=== PATIENT | female | born 1995 | race Two or more races ===

== ENCOUNTER → 2024-05-29 | Outpatient (CLI) | payer MEDICAID ==
[2024-05-29 07:15] LABS: Basophils # (auto) 0 10 ^3/uL (0-0.2); Basophils % (auto) 0.3 % (0.0-2.0); Eosinophils # (auto) 0.2 10 ^3/uL (0-0.8); Eosinophils % (auto) 2.2 % (0.0-7.0); Hematocrit 36.6 % (36.0-46.0); Hemoglobin 12.4 g/dL (12.2-16.2); Lymphocytes # (auto) 2.6 10 ^3/uL (0.4-5.4); Lymphocytes % (auto) 29.1 % (10.0-50.0); Mean Corpuscular Hemoglobin 32.9 pg (28.0-32.0); Mean Corpuscular Volume 96.8 fL (80.0-100.0); Monocytes # (auto) 0.6 10 ^3/uL (0-1.3); Monocytes % (auto) 6.9 % (0.0-12.0); Neutrophils # (auto) 5.4 10 ^3/uL (1.6-8.6); Neutrophils % (auto) 61.5 % (37.0-80.0); Nucleated Red Blood Cells % 0.1 %; Platelet Count (auto) 264 10^3/uL (140-450); Red Blood Cells 3.78 10^6/uL (4.0-5.20); Red Cell Distribution Width 14.9 % (11.8-14.3); White Blood Cell 8.8 10^3/uL (4.4-10.8)
[2024-05-29 07:36] LABS: Amphetamine Screen, Urine Neg (NEGATIVE)
[2024-05-29 07:37] LABS: Alanine Aminotransferase 14 U/L (7-40); Albumin 3.9 g/dL (3.2-4.8); Alkaline Phosphatase 52 U/L (46-116); Anion Gap 8 (5-15); Aspartate Aminotransferase 12 U/L (13-40); Bilirubin, Total 0.4 mg/dL (0.2-1.0); Blood Urea Nitrogen 9 mg/dL (9-23); Calcium 9.4 mg/dL (8.7-10.4); Carbon Dioxide 23 mmol/L (20-31); Chloride 108 mmol/L (98-107); Cholesterol 220 mg/dL (< 200); Glucose 91 mg/dL (74-106); HDL Cholesterol 105 mg/dL (40-59); LDL Cholesterol 100 mg/dL (< 100); Potassium 3.7 mmol/L (3.5-5.1); Sodium 139 mmol/L (136-145); Total Protein 6.3 g/dL (5.7-8.2); Triglycerides 85 mg/dL (< 150)
[2024-05-29 07:38] LABS: Barbiturate Scree,Urine Neg (NEGATIVE); Benzodiazephine Screen, Urine Neg (NEGATIVE); Cannabinoid Screen, Urine Neg (NEGATIVE); Cocaine Screen, Urine Neg (NEGATIVE); Opiate Scree,Urine Neg (NEGATIVE); Phencyclidine Screen, Urine Neg (NEGATIVE)
[2024-05-29 07:40] LABS: Thyroid Stimulating Hormone 2.64 uIU/mL (0.55-4.78)
[2024-05-29 07:48] LABS: Beta HCG, Quantitative 22784.1 mIU/mL (1.5-4.2)
[2024-05-30 07:06] LABS: RPR Non Reactive (Non Reactive)
[2024-05-30 08:06] LABS: Varicella Zoster IgG Antibody Reactive (Non Reactive)
[2024-05-30 13:07] LABS: Chlamydia Trachomatis, NAA Negative (Negative); Neisseria gonorrhoeae, NAA Negative (Negative)
== END | disposition home or self-care (01) ==
LOC: LAB 06:10
PROVIDERS: ATTEND Obstetrics & Gynecology
DX: Z34.00 Encounter for supervision of normal first pregnancy, unspecified trimester (principal); Z36.0 Encounter for antenatal screening for chromosomal anomalies; Z31.430 Encounter of female for testing for genetic disease carrier status for procreative management; N39.0 Urinary tract infection, site not specified
CPT/HCPCS: 36415; 80053; 80061; 80307; 83036; 84439; 84443; 84702; 85025; 86592; 86703; 86762; 86787; 86850; 86900; 86901; 87086; 87902

== ENCOUNTER → 2024-08-13 | Outpatient (CLI) | payer MEDICAID ==
[2024-08-13 11:16] LABS: Basophils # (auto) 0 10 ^3/uL (0-0.2); Basophils % (auto) 0.3 % (0.0-2.0); Eosinophils # (auto) 0.2 10 ^3/uL (0-0.8); Eosinophils % (auto) 2.3 % (0.0-7.0); Hematocrit 37.9 % (36.0-46.0); Hemoglobin 12.9 g/dL (12.2-16.2); Lymphocytes % (auto) 22.3 % (10.0-50.0); Mean Corpuscular Hemoglobin 33.1 pg (28.0-32.0); Mean Corpuscular Hgb Conc. 34.1 g/dL (32.0-36.0); Mean Corpuscular Volume 97.3 fL (80.0-100.0); Monocytes % (auto) 10.8 % (0.0-12.0); Neutrophils # (auto) 5.8 10 ^3/uL (1.6-8.6); Neutrophils % (auto) 64.3 % (37.0-80.0); Platelet Count (auto) 241 10^3/uL (140-450); Red Cell Distribution Width 13.8 % (11.8-14.3)
[2024-08-13 11:38] LABS: Alanine Aminotransferase 11 U/L (7-40); Albumin 3.9 g/dL (3.2-4.8); Alkaline Phosphatase 89 U/L (46-116); Anion Gap 8 (5-15); BUN/Creatinine Ratio 11.5 (10.0-20.0); Calcium 9.2 mg/dL (8.7-10.4); Carbon Dioxide 23 mmol/L (20-31); Chloride 107 mmol/L (98-107); Glucose 99 mg/dL (74-106); Sodium 138 mmol/L (136-145)
[2024-08-13 11:39] LABS: Bilirubin, Total 0.4 mg/dL (0.2-1.0); Total Protein 6.2 g/dL (5.7-8.2)
[2024-08-13 11:48] LABS: Aspartate Aminotransferase 13 U/L (13-40); Blood Urea Nitrogen 7 mg/dL (9-23)
[2024-08-14 07:06] LABS: RPR Non Reactive (Non Reactive)
[2024-08-14 23:06] LABS: Chlamydia Trachomatis, NAA Negative (Negative); Neisseria gonorrhoeae, NAA Negative (Negative)
== END | disposition home or self-care (01) ==
LOC: LAB 10:01
PROVIDERS: ATTEND Obstetrics & Gynecology
DX: Z34.00 Encounter for supervision of normal first pregnancy, unspecified trimester (principal); Z3A.00 Weeks of gestation of pregnancy not specified
CPT/HCPCS: 36415; 80053; 82951; 83036; 85025; 86592; 86850; 86900; 86901

== ENCOUNTER 2024-08-22 17:10 | Observation (INO) | payer MEDICAID ==
[~2024-08-22] VITALS: Ht 177.8 cm; Wt 115.7 kg
--- NOTE | 2024-08-22 20:10 | DVH ---
ULTRASOUND BIOPHYSICAL PROFILE CLINICAL HISTORY: GDMA1 COMPARISON: None available TECHNIQUE: Real-time grayscale, color flow and M-mode imaging of the gravid uterus is performed. FINDINGS: Single living intrauterine gestation. Cephalic presentation. heart rate 119 beats per minute. Amniotic fluid index: 13.02 cm Biophysical profile: 8 out of 8. (2 breathing, 2 activity, 2 tone, 2 SABRINA) IMPRESSION: Biophysical profile scoring 8 out of 8.
--- NOTE | 2024-08-22 22:08 | DVHDS2 ---
Physician Discharge Progress N Final Diagnosis: IUP at 32w GDMA1 Hypothyroidism Reactive NST Normal Biophysical profile Operations or Procedures: Operations or Procedures 28yo G1,[address] for surveillance due to GDMA1 and hypothyroidism. EDC 10/14/2024. EGA 32w 3d. She reports normal movements, no UCs, no leakage of fluid, vaginal bleeding, WILLIAMSON, vision changes or epigastric pain O: A&O x3 NAD. Afebrile, VSS Respiration: unlabored heart and lung sounds normal. Abdomen: Gravid, non-tender to palpation Extremities: No edema BPP 8/8 FHR baseline 120bpm with accelerations, no deceleration, no contraction noted nor palpated. A: Normal BPP Reactive NST P: Continue surveillance 2x/week Keep all schedule OB appointments with your OB provider 3rd trimester emergency S&S FMC, PTL & pre-eclampsia precautions reviewed with pt; advised to seek health care if any Condition on Discharge: Good Disposition: Home Discharge Instructions: Diet: Consistent carbohydrate Activity: No Restrictions, As Tolerated Activity comment: Balance activity with rest periods Medications: None Follow Up Care: Discharge Statement: "Patient was advised to return to the ER or call 911 if any headaches, dizziness, shortness of breath, chest pain, abdominal pain, bleeding, fevers, or worsening of medical condition. Patient was counseled about treatment plan, medications, possible side effects, patientverbalized understanding. All questions were answered to the best of my ability. This discharge took greater then 30 minutes in planning, reviewing documentation, counseling the patient, and discussing with other team members." Visit Coding OBGYN Date of Service: Aug 22, 2024 Billing Provider: KELI GUZMAN CNM ORCHESTRA DIRECTOR Common Visit Codes: [id number] INP/OBS CARE (HIGH) KELI GUZMAN CNM Aug 22, 2024 22:08
[2024-09-08] MEDS ORDERED: METF-370 PO (16:04)
[2024-09-08] MEDS ORDERED: LEVO150T10 PO (16:06)
== END 2024-08-22 21:05 | disposition home or self-care (01) ==
LOC: LDRP 17:10
PROVIDERS: ADMIT Obstetrics & Gynecology; ATTEND Obstetrics & Gynecology
DX: O99.283 Endocrine, nutritional and metabolic diseases complicating pregnancy, third trimester (principal); E03.9 Hypothyroidism, unspecified; O24.419 Gestational diabetes mellitus in pregnancy, unspecified control; Z3A.32 32 weeks gestation of pregnancy; Z79.899 Other long term (current) drug therapy; Z98.890 Other specified postprocedural states
CPT/HCPCS: 59025; 76818; 81002; 82948; 82962; 94760; G0378

== ENCOUNTER 2024-09-05 19:04 | Observation (INO) | payer MEDICAID ==
--- NOTE | 2024-09-05 21:16 | DVH ---
OB ULTRASOUND, LIMITED CLINICAL INDICATION: GDMA1/Hypothyroidism TECHNIQUE: Multiple grayscale ultrasound and M-mode images were obtained of the pelvis for evaluation of intrauterine . COMPARISON: US BIOPHYSICAL PROFILE on DOS: 08/22/24 FINDINGS /impression: Biophysical profile: 02/12 breathin movements: 2 tone: 2 Amniotic fluid: 2 (SABRINA 13.5 cm) position: Cephalic heart rate: 140 beats per minute Placenta location: Posterior
--- NOTE | 2024-09-09 11:59 | DVHDS2 ---
Physician Discharge Progress N Final Diagnosis: gdm,hypothyroidism Operations or Procedures: Operations or Procedures nst,sono Condition on Discharge: Good Disposition: Home Discharge Instructions: Diet: Consistent carbohydrate Activity: No Restrictions, As Tolerated Medications: na Follow Up Care: Specialist: 3d Discharge Statement: "Patient was advised to return to the ER or call 911 if any headaches, dizziness, shortness of breath, chest pain, abdominal pain, bleeding, fevers, or worsening of medical condition. Patient was counseled about treatment plan, medications, possible side effects, patientverbalized understanding. All questions were answered to the best of my ability. This discharge took greater then 30 minutes in planning, reviewing do cumentation, counseling the patient, and discussing with other team members." Visit Coding OBGYN Date of Service: Sep 05, 2024 Billing Provider: MARIO ANTOINE DO ELECTRIC TRUCK OPERATOR Common Visit Codes: [id number]-[id number] INP/OBS CARE (HIGH) ELECTRIC TRUCK OPERATOR Procedure Codes: 89221-00- NON-STRESS TEST MARIO ANTOINE DO Sep 09, 2024 11:59
== END 2024-09-05 21:20 | disposition home or self-care (01) ==
LOC: LDRP 19:04
PROVIDERS: ADMIT Obstetrics & Gynecology; ATTEND Obstetrics & Gynecology
DX: O24.419 Gestational diabetes mellitus in pregnancy, unspecified control (principal); O99.283 Endocrine, nutritional and metabolic diseases complicating pregnancy, third trimester; E03.9 Hypothyroidism, unspecified; Z98.890 Other specified postprocedural states; Z79.899 Other long term (current) drug therapy; Z3A.34 34 weeks gestation of pregnancy
CPT/HCPCS: 59025; 76819; 81002; 82948; 82962; 94760; G0378; 76818

== ENCOUNTER 2024-09-08 15:00 | Observation (INO) | payer MEDICAID ==
[2024-09-08] MEDS ORDERED: METF-370 PO ×2 (16:04)
[2024-09-08] MEDS ORDERED: LEVO150T10 PO ×2 (16:06)
--- NOTE | 2024-09-08 16:19 | DVH ---
Procedure: US BIOPHYSICAL PROFILE 09/08/2024 03:29 PM Indication: GDMA2/Hypothyroid Comparison: US BIOPHYSICAL PROFILE on DOS: 09/05/24, US BIOPHYSICAL PROFILE on DOS: 08/22/24 Technique: Sonogram of gravid uterus utilizing grayscale and color techniques. FINDINGS: Single living intrauterine gestation. Presentation: Cephalic Placenta: Posterior heart rate: 122 bpm SABRINA: 17.6 cm, DVP: 5.5 cm Maternal cervix: Not visualized Biophysical Profile: breathing score: 2 movement score: 2 tone: 2 Quantitative SABRINA score: 2 Total score: 8/8 IMPRESSION: 1. Single living as above. 2. Biophysical profile score: 8/8.
--- NOTE | 2024-09-08 21:32 | DVHDS2 ---
Physician Discharge Progress N Final Diagnosis: testing for GDMA2/hypothyroidism Operations or Procedures: Operations or Procedures 28yo IUP@34.6wks, +FM, denies UCs/LOF/VB VSS NST reactive FKC/PTL precautions reviewed. Dr. Angel consulted, agrees with POC. Other Interventions Other Interventions [place] [address] Ph: [phone] DIAGNOSTIC IMAGING Diagnostic Imaging Report : [id number] Signed PATIENT: SARA CAMACHO VACCT: [id number] UNIT: [id number] : 1995 LOC: [facility] ROOM / BED: TRIAGE1 / A AGE / SEX: 28 / F ADM STATUS: ADM IN SERVICE 151 ORDERING PHYSICIAN: TEJA GONZALEZ CNM PROCEDURE(s): BPP - BIOPHYSICAL PROFILE REASON: GDMA2/Hypothyroid ORDER NUMBER(s): [id number], ACCESSION NUMBER(s): [id number] Procedure: US BIOPHYSICAL PROFILE 09/08/2024 03:29 PM Indication: GDMA2/Hypothyroid Comparison: US BIOPHYSICAL PROFILE on DOS: 09/05/24, US BIOPHYSICAL PROFILE on DOS: 08/22/24 Technique: Sonogram of gravid uterus utilizing grayscale and color techniques. FINDINGS: Single living intrauterine gestation. Presentation: Cephalic Placenta: Posterior heart rate: 122 bpm SABRINA: 17.6 cm, DVP: 5.5 cm Maternal cervix: Not visualized Biophysical Profile: breathing score: 2 movement score: 2 tone: 2 Quantitative SABRINA score: 2 Total score: 8/8 IMPRESSION: 1. Single living as above. 2. Biophysical profile score: 8/8. ATED BY: KATIANA RAY MD DICTATED DATE/TIME: 09/08/241616 SIGNED BY: KATIANA RAY MD SIGNED DATE/TIME: 09/08/241616 CC: Condition on Discharge: Stable Disposition: Home Discharge Instructions: Diet: Consistent carbohydrate Activity: No Restrictions, As Tolerated Medications: see med list Follow Up Care: Specialist: f/u in 3 days Discharge Statement: "Patient was advised to return to the ER or call 911 if any headaches, dizziness, shortness of breath, chest pain, abdominal pain, bleeding, fevers, or worsening of medical condition. Patient was counseled about treatment plan, medications, possible side effects, patientverbalized understanding. All questions were answered to the best of my ability. This discharge took greater then 30 minutes in planning, reviewing documentation, counseling the patient, and discussing with other team members." Visit Coding OBGYN Date of Service: Sep 08, 2024 Billing Provider: TEJA GONZALEZ CNM MANAGER SPANISH Common Visit Codes: [id number] OBS CARE (HIGH) MANAGER SPANISH Procedure Codes: 02782-01- NON-STRESS TEST TEJA GONZALEZ CNM Sep 08, 2024 21:32
== END 2024-09-08 16:22 | disposition home or self-care (01) ==
LOC: UNDOADMOB 15:00 → LDRP 15:00 → UNDODISOB 16:22
PROVIDERS: ADMIT Obstetrics & Gynecology; ATTEND Obstetrics & Gynecology
DX: O24.419 Gestational diabetes mellitus in pregnancy, unspecified control (principal); O99.283 Endocrine, nutritional and metabolic diseases complicating pregnancy, third trimester; E03.9 Hypothyroidism, unspecified; Z98.890 Other specified postprocedural states; Z79.899 Other long term (current) drug therapy; Z3A.34 34 weeks gestation of pregnancy
CPT/HCPCS: 59025; 76819; 81002; 82948; 82962; 94760; G0378; 76818

== ENCOUNTER 2024-09-11 08:07 | Observation (INO) | payer MEDICAID ==
[~2024-09-11 08:07] MED LIST: LEVO150T10 PO; METF-370 PO
--- NOTE | 2024-09-11 09:27 | DVH ---
Procedure: US BIOPHYSICAL PROFILE 09/11/2024 08:33 AM Indication: GDMA2/Hypothyroid Comparison: US BIOPHYSICAL PROFILE on DOS: 09/08/24, US BIOPHYSICAL PROFILE on DOS: 09/05/24, US BIOPHYSI SANTA PROFILE on DOS: 08/22/24 Technique: Sonogram of gravid uterus utilizing grayscale and color techniques. FINDINGS: Single living intrauterine gestation. Presentation: Cephalic Placenta: Anterior, accessory versus bilobed placenta heart rate: 130 bpm SABRINA: 15 cm, DVP: 4 cm Maternal cervix: Not visualized Biophysical Profile: breathing score: 2 movement score: 2 tone: 2 Quantitative SABRINA score: 2 Total score: 8/8 IMPRESSION: 1. Single living as above. 2. Biophysical profile score: 8/8.
--- NOTE | 2024-09-11 14:43 | DVHDS2 ---
Physician Discharge Progress N Final Diagnosis: iup at 35wks gdm,hypothyroidism Operations or Procedures: Operations or Procedures nst,sono Condition on Discharge: Good Disposition: Home Discharge Instructions: Diet: Consistent carbohydrate Activity: No Restrictions, As Tolerated Medications: na Follow Up Care: Specialist: 3d Discharge Statement: "Patient was advised to return to the ER or call 911 if any headaches, dizziness, shortness of breath, chest pain, abdominal pain, bleeding, fevers, or worsening of medical condition. Patient was counseled about treatment plan, medications, possible side effects, patientverbalized understanding. All questions were answered to the best of my ability. This discharge took greater then 30 minutes in planning, reviewing documentation, counseling the patient, and discussing with other team members." Visit Coding OBGYN Date of Service: Sep 11, 2024 Billing Provider: MARIO ANTOINE DO REAMING MACHINE OPERATOR Common Visit Codes: [id number] INP/OBS CARE (HIGH) REAMING MACHINE OPERATOR Procedure Codes: 16007-59- NON-STRESS TEST MARIO ANTOINE DO Sep 11, 2024 14:43
== END 2024-09-11 09:38 | disposition home or self-care (01) ==
LOC: UNDOADMOB 08:07 → LDRP 08:07
PROVIDERS: ADMIT Obstetrics & Gynecology; ATTEND Obstetrics & Gynecology
DX: O24.419 Gestational diabetes mellitus in pregnancy, unspecified control (principal); O99.283 Endocrine, nutritional and metabolic diseases complicating pregnancy, third trimester; E03.9 Hypothyroidism, unspecified; Z98.890 Other specified postprocedural states; Z79.899 Other long term (current) drug therapy; Z3A.35 35 weeks gestation of pregnancy
CPT/HCPCS: 59025; 76819; 81002; 82948; 82962; 94760; G0378; 76818

== ENCOUNTER 2024-09-15 06:51 | Observation (INO) | payer MEDICAID ==
--- NOTE | 2024-09-15 13:04 | DVH ---
EXAM: US BIOPHYSICAL PROFILE HISTORY: GDMA2/Hypothyroid COMPARISON: US BIOPHYSICAL PROFILE on DOS: 09/11/24, US BIOPHYSICAL PROFILE on DOS: 09/08/24, US BIOPHYSI SANTA PROFILE on DOS: 09/05/24 TECHNIQUE: Multiple transabdominal real-time grayscale sonographic images through the gravid uterus of the fetus with duplex Doppler color flow and M-mode spectral analysis Findings/Impression: Single live intrauterine in vertex presentation with heart rate of 138 bpm. Biophysical profile was performed with 2 points for respirations, 2 points for movement, 2 points for tone and 2 points for amniotic fluid index. Biophysical profile score of 8/8. Amniotic fluid is within normal limits with SABRINA 15.2 cm and MVP 5.4 cm. Possible bilobed placenta. Normal SABRINA (5-25 cm) Normal MVP (2-8 cm)
--- NOTE | 2024-09-15 13:54 | DVHDS2 ---
Physician Discharge Progress N Final Diagnosis: gdm ,hypothyroidism 35wks Operations or Procedures: Operations or Procedures nstb 35wks,sono Condition on Discharge: Good Disposition: Home Discharge Instructions: Diet: Consistent carbohydrate Activity: No Restrictions, As Tolerated Medications: na Follow Up Care: Specialist: 1w Discharge Statement: "Patient was advised to return to the ER or call 911 if any headaches, dizziness, shortness of breath, chest pain, abdominal pain, bleeding, fevers, or worsening of medical condition. Patient was counseled about treatment plan, medications, possible side effects, patientverbalized understanding. All questions were answered to the best of my ability. This discharge took greater then 30 minutes in planning, reviewing documentation, counseling the patient, and discussing with other team members." Visit Coding OBGYN Date of Service: Sep 15, 2024 Billing Provider: MARIO ANTOINE DO CARDIAC CATH LAB RADIOLOGY TECHNOLOGIST Common Visit Codes: [id number] INP/OBS CARE (HIGH) CARDIAC CATH LAB RADIOLOGY TECHNOLOGIST Procedure Codes: 39896-53- NON-STRESS TEST MARIO ANTOINE DO Sep 15, 2024 13:54
== END 2024-09-15 13:47 | disposition home or self-care (01) ==
LOC: LDRP 12:02
PROVIDERS: ADMIT Obstetrics & Gynecology; ATTEND Obstetrics & Gynecology
DX: O24.419 Gestational diabetes mellitus in pregnancy, unspecified control (principal); O99.283 Endocrine, nutritional and metabolic diseases complicating pregnancy, third trimester; E03.9 Hypothyroidism, unspecified; Z98.890 Other specified postprocedural states; Z79.899 Other long term (current) drug therapy; Z3A.35 35 weeks gestation of pregnancy
CPT/HCPCS: 76819; 81002; 82948; 82962; 94760; G0378; 59025; 76818

== ENCOUNTER 2024-09-18 16:00 | Observation (INO) | payer MEDICAID ==
--- NOTE | 2024-09-18 17:20 | DVH ---
EXAM: US BIOPHYSICAL PROFILE HISTORY: GDMA2 and Hypothyroid COMPARISON: US BIOPHYSICAL PROFILE on DOS: 09/15/24, US BIOPHYSICAL PROFILE on DOS: 09/11/24, US BIOPHYS ICAL PROFILE on DOS: 09/08/24 TECHNIQUE: Multiple transabdominal real-time grayscale sonographic images through the gravid uterus of the fetus with duplex Doppler color flow and M-mode spectral analysis Findings/Impression: Single live intrauterine in vertex presentation with heart rate of 151 bpm. Possible accessory versus bilobed placenta. Biophysical profile was performed with 2 points for respirations, 2 points for movement, 2 points for tone and 2 points for amniotic fluid index. Biophysical profile score of 8/8. Amniotic fluid is within normal limits with SABRINA 12.4 cm and MVP 5.0 cm. Normal SABRINA (5-25 cm) Normal MVP (2-8 cm)
--- NOTE | 2024-09-18 17:32 | DVHDS2 ---
Physician Discharge Progress N Final Diagnosis: testing for hypothyroidism and GDM, A2 Operations or Procedures: Operations or Procedures 28yo IUP@36.2wks VSS NST reactive FKC/PTL precautions reviewed Dr. Angel consulted, agrees with POC. Other Interventions Other Interventions [facility] [id number] [place] [address] Ph: [phone] DIAGNOSTIC IMAGING Diagnostic Imaging Report : [id number] Signed PATIENT: SARA CAMACHO VACCT: [id number] UNIT: [id number] : 1995 LOC: [facility] ROOM / BED: TRIAGE3 / A AGE / SEX: 28 / F ADM STATUS: ADM IN SERVICE 1604 ORDERING PHYSICIAN: MARIO ANGEL DO PROCEDURE(s): BPP - BIOPHYSICAL PROFILE REASON: GDMA2 and Hypothyroid ORDER NUMBER(s): [id number], ACCESSION NUMBER(s): [id number] EXAM: US BIOPHYSICAL PROFILE HISTORY: GDMA2 and Hypothyroid COMPARISON: US BIOPHYSICAL PROFILE on DOS: 09/15/24, US BIOPHYSICAL PROFILE on DOS: 09/11/24, US BIOPHYSICAL PROFILE on DOS: 09/08/24 TECHNIQUE: Multiple transabdominal real-time grayscale sonographic images through the gravid uterus of the fetus with duplex Doppler color flow and M-mode spectral analysis Findings/Impression: Single live intrauterine in vertex presentation with heart rate of 151 bpm. Possible accessory versus bilobed placenta. Biophysical profile was performed with 2 points for respirations, 2 points for movement, 2 points for tone and 2 points for amniotic fluid index. Biophysical profile score of 8/8. Amniotic fluid is within normal limits with SABRINA 12.4 cm and MVP 5.0 cm. Normal SABRINA (5-25 cm) Normal MVP (2-8 cm) ATED BY: JAYNA DALEY DO DICTATED DATE/TIME: 09/18/241717 SIGNED BY: JAYNA DALEY DO SIGNED DATE/TIME: 09/18/241717 CC: Condition on Discharge: Stable Disposition: Home Discharge Instructions: Diet: Consistent carbohydrate Activity: No Restrictions, As Tolerated Medications: see med list Follow Up Care: Specialist: f/u twice weekly Discharge Statement: "Patient was advised to return to the ER or call 911 if any headaches, dizziness, shortness of breath, chest pain, abdominal pain, bleeding, fevers, or worsening of medical condition. Patient was counseled about treatment plan, medications, possible side effects, patientverbalized understanding. All questions were answered to the best of my ability. This discharge took greater then 30 minutes in planning, reviewing documentation, counseling the patient, and discussing with other team members." Visit Coding OBGYN Date of Service: Sep 18, 2024 Billing Provider: TEJA GONZALEZ CNM GLASS CUTTER Common Visit Codes: 60025-[id number] OBS CARE (HIGH) GLASS CUTTER Procedure Codes: 34359-27- NON-STRESS TEST TEJA GONZALEZ CNM Sep 18, 2024 17:32
== END 2024-09-18 17:37 | disposition home or self-care (01) ==
LOC: LDRP 16:00 → UNDOADMOB 16:00 → LDRP 16:05
PROVIDERS: ADMIT Obstetrics & Gynecology; ATTEND Obstetrics & Gynecology
DX: O24.419 Gestational diabetes mellitus in pregnancy, unspecified control (principal); O99.283 Endocrine, nutritional and metabolic diseases complicating pregnancy, third trimester; E03.9 Hypothyroidism, unspecified; Z98.890 Other specified postprocedural states; Z79.899 Other long term (current) drug therapy; Z3A.36 36 weeks gestation of pregnancy
CPT/HCPCS: 76819; 81002; 82948; 82962; 94760; G0378; 59025; 76818

== ENCOUNTER 2024-09-22 17:08 | Observation (INO) | payer MEDICAID ==
--- NOTE | 2024-09-22 20:21 | DVH ---
ULTRASOUND BIOPHYSICAL PROFILE CLINICAL HISTORY: GDMA2/hypothyroid COMPARISON: US BIOPHYSICAL PROFILE on DOS: 09/18/24 TECHNIQUE: Real-time grayscale, color flow and M-mode imaging of the gravid uterus is performed. FINDINGS: Single living intrauterine gestation. Cephalic presentation. heart rate 153 beats per minute. Placenta is posterior. No definite evidence of previa or abruption at this time. Possible accessory p lacenta is again noted. Amniotic fluid index: 13.6cm Biophysical profile: 8 out of 8. (2 breathing, 2 activity, 2 tone, 2 SABRINA) IMPRESSION: Biophysical profile scoring 8 out of 8. Possible accessory versus bilobed placenta is again noted.
--- NOTE | 2024-09-22 22:58 | DVHDS2 ---
Physician Discharge Progress N Final Diagnosis: testing for GDMA2/hypothyroidism Operations or Procedures: Operations or Procedures 28yo IUP@36.6wks VSS NST reactive FKC/PTL/labor precautions reviewed Dr. Angel agrees with POC. Other Interventions Other Interventions [address] [address] Ph: [phone] DIAGNOSTIC IMAGING Diagnostic Imaging Report : [id number] Signed PATIENT: SARA CAMACHO VACCT: [id number] UNIT: [id number] : 1995 LOC: [facility] ROOM / BED: TRIAGE1 / A AGE / SEX: 28 / F ADM STATUS: ADM IN SERVICE 53 ORDERING PHYSICIAN: TEJA GONZALEZ CNM PROCEDURE(s): BPP - BIOPHYSICAL PROFILE REASON: GDMA2/hypothyroid ORDER NUMBER(s): [id number], ACCESSION NUMBER(s): [id number] ULTRASOUND BIOPHYSICAL PROFILE CLINICAL HISTORY: GDMA2/hypothyroid COMPARISON: US BIOPHYSICAL PROFILE on DOS: 09/18/24 TECHNIQUE: Real-time grayscale, color flow and M-mode imaging of the gravid uterus is performed. FINDINGS: Single living intrauterine gestation. Cephalic presentation. heart rate 153 beats per minute. Placenta is posterior. No definite evidence of previa or abruption at this time. Possible accessory placenta is again noted. Amniotic fluid index: 13.6cm Biophysical profile: 8 out of 8. (2 breathing, 2 activity, 2 tone, 2 SABRINA) IMPRESSION: Biophysical profile scoring 8 out of 8. Possible accessory versus bilobed placenta is again noted. ATED BY: GIOVANY WARD MD DICTATED DATE/TIME: 09/22/242018 SIGNED BY: GIOVANY WARD MD SIGNED DATE/TIME: 09/22/242018 CC: Condition on Discharge: Stable Disposition: Home Discharge Instructions: Diet: Consistent carbohydrate Activity: No Restrictions, As Tolerated Medications: see med list Follow Up Care: Specialist: f/u in 3 days Discharge Statement: "Patient was advised to return to the ER or call 911 if any headaches, dizziness, shortness of breath, chest pain, abdominal pain, bleeding, fevers, or worsening of medical condition. Patient was counseled about treatment plan, medications, possible side effects, patientverbalized understanding. All questions were answered to the best of my ability. This discharge took greater then 30 minutes in planning, reviewing documen tation, counseling the patient, and discussing with other team members." Visit Coding OBGYN Date of Service: Sep 22, 2024 Billing Provider: TEJA GONZALEZ CNM METAL REFINER Common Visit Codes: [id number] OBS CARE (HIGH) METAL REFINER Procedure Codes: 72088-53- NON-STRESS TEST TEJA GONZALEZ CNM Sep 22, 2024 22:58
== END 2024-09-22 20:14 | disposition home or self-care (01) ==
LOC: LDRP 17:08
PROVIDERS: ADMIT Obstetrics & Gynecology; ATTEND Obstetrics & Gynecology
DX: O24.419 Gestational diabetes mellitus in pregnancy, unspecified control (principal); O99.283 Endocrine, nutritional and metabolic diseases complicating pregnancy, third trimester; E03.9 Hypothyroidism, unspecified; Z3A.36 36 weeks gestation of pregnancy; Z79.899 Other long term (current) drug therapy
CPT/HCPCS: 59025; 76819; 81002; 82948; 82962; 94760; G0378

== ENCOUNTER 2024-09-25 19:08 | Observation (INO) | payer MEDICAID ==
--- NOTE | 2024-09-25 20:16 | DVH ---
BIOPHYSICAL PROFILE HISTORY: GDMA2 and hypothyroidism TECHNIQUE: Multiple transabdominal real-time grayscale sonographic images through the gravid uterus of the fetus with duplex Doppler color flow and M-mode spectral analysis FINDINGS: BIOPHYSICAL PROFILE: breathing score: 2 movement score: 2 tone score: 2 Quantitative SABRINA score: 2 (SABRINA: 14 cm) Total score: 8/8 The cervix not measured Single live fetus in cephalic presentation. heart rate 121 beats per minute. Posterior Grade 2-3 placenta without previa or abruption Single live fetus at weeks days Biophysical profile score 8/8 corresponding to an LONNY of 10/07/2024 Estimated weight not calculated g IMPRESSION: 1. Biophysical profile score: 8/8
--- NOTE | 2024-09-26 07:15 | DVHDS2 ---
Physician Discharge Progress N Final Diagnosis: iup at 37 wks with gdm Operations or Procedures: Operations or Procedures nst,sono Condition on Discharge: Good Disposition: Home Discharge Instructions: Diet: Consistent carbohydrate Activity: No Restrictions, As Tolerated Medications: na Follow Up Care: Specialist: 1w Discharge Statement: "Patient was advised to return to the ER or call 911 if any headaches, dizziness, shortness of breath, chest pain, abdominal pain, bleeding, fevers, or worsening of medical condition. Patient was counseled about treatment plan, medications, possible side effects, patientverbalized understanding. All questions were answered to the best of my ability. This discharge took greater then 30 minutes in planning, reviewing documentation, counseling the patient, and discussing with other team members." Visit Coding OBGYN Date of Service: Sep 26, 2024 Billing Provider: MARIO ANTOINE DO MANAGER VIDEO Common Visit Codes: [id number] INP/OBS CARE (HIGH) MANAGER VIDEO Procedure Codes: 78797-72- NON-STRESS TEST MARIO ANTOINE DO Sep 26, 2024 07:15
== END 2024-09-25 21:02 | disposition home or self-care (01) ==
LOC: LDRP 19:08
PROVIDERS: ADMIT Obstetrics & Gynecology; ATTEND Obstetrics & Gynecology
DX: O24.419 Gestational diabetes mellitus in pregnancy, unspecified control (principal); Z98.890 Other specified postprocedural states; Z79.899 Other long term (current) drug therapy; Z3A.37 37 weeks gestation of pregnancy
CPT/HCPCS: 59025; 76819; 81002; 82962; G0378; 76818

== ENCOUNTER 2024-09-30 19:11 | Observation (INO) | payer MEDICAID ==
--- NOTE | 2024-09-30 20:20 | DVHDS2 ---
Physician Discharge Progress N Final Diagnosis: testing for GDM, A2 and hypothyroid Operations or Procedures: Operations or Procedures 28yo IUP@38wks VSS NST reactive BPP wnl FKC/labor precautions reviewed Condition on Discharge: Stable Disposition: Home Discharge Instructions: Diet: Consistent carbohydrate Activity: No Restrictions, As Tolerated Medications: see med list Follow Up Care: Specialist: f/u in 3 days Discharge Statement: "Patient was advised to return to the ER or call 911 if any headaches, dizziness, shortness of breath, chest pain, abdominal pain, bleeding, fevers, or worsening of medical condition. Patient was counseled about treatment plan, medications, possible side effects, patientverbalized understanding. All questions were answered to the best of my ability. This discharge took greater then 30 minutes in planning, reviewing documentation , counseling the patient, and discussing with other team members." Visit Coding OBGYN Date of Service: Sep 30, 2024 Billing Provider: TEJA GONZALEZ CNM SCHOOL PHOTOGRAPHER Common Visit Codes: [id number] OBS CARE (HIGH) SCHOOL PHOTOGRAPHER Procedure Codes: 95669-17- NON-STRESS TEST TEJA GONZALEZ CNM Sep 30, 2024 20:20
--- NOTE | 2024-09-30 21:20 | DVH ---
EXAM: US BIOPHYSICAL PROFILE HISTORY: GDMA2 COMPARISON: US BIOPHYSICAL PROFILE on DOS: 09/25/24, US BIOPHYSICAL PROFILE on DOS: 09/22/24, US BIOPHY SICAL PROFILE on DOS: 09/18/24 TECHNIQUE: Multiple transabdominal real-time grayscale sonographic images through the gravid uterus of the fetus with duplex Doppler color flow and M-mode spectral analysis Findings/Impression: Single live intrauterine in vertex presentation with heart rate of 136 bpm. Biophysical profile was performed with 2 points for respirations, 2 points for movement, 2 points for tone and 2 points for amniotic fluid index. Biophysical profile score of 8/8. Amniotic fluid is within normal limits with SABRINA 17.0 cm and MVP 5.5 cm. Possible accessory placenta. Normal SABRINA (5-25 cm) Normal MVP (2-8 cm)
== END 2024-09-30 20:42 | disposition home or self-care (01) ==
LOC: LDRP 19:11
PROVIDERS: ADMIT Obstetrics & Gynecology; ATTEND Obstetrics & Gynecology
DX: O24.419 Gestational diabetes mellitus in pregnancy, unspecified control (principal); O99.283 Endocrine, nutritional and metabolic diseases complicating pregnancy, third trimester; E03.9 Hypothyroidism, unspecified; Z3A.38 38 weeks gestation of pregnancy; Z98.890 Other specified postprocedural states; Z79.899 Other long term (current) drug therapy
CPT/HCPCS: 59025; 76819; 81002; 82948; 82962; 94760; G0378

== ENCOUNTER 2024-10-03 19:10 | Observation (INO) | payer MEDICAID ==
--- NOTE | 2024-10-03 20:36 | DVHDS2 ---
Physician Discharge Progress N Final Diagnosis: IUP at 38w 2d GDMA2 Hypothyroidism Operations or Procedures: Operations or Procedures 28yo G1,[address] for surveillance d/t GDMA2 and hypothyroidism. EDC 10/14/24 EGA 38w 3d. She reports normal movements, no UCs, no leakage of fluid, vaginal bleeding, WILLIAMSON, vision changes or epigastric pain O: A&O x3 NAD. Afebrile, VSS Respiration: unlabored Abdomen: Gravid, non-tender to palpation Extremities: No edema BPP 02/12 EFM: FHR baseline 115 bpm, moderate variability, accelerations, no deceleration No Contraction noted A: Normal BPP Reactive NST P: Return forscheduled IOL on 10/06/24 Schedule OB follow appointment with OB provider immediately 3rd trimester emergency S&S FMC, & pre-eclampsia precautions reviewed with pt; advised to seek health care if any Condition on Discharge: Good Disposition: Home Discharge Instructions: Diet: Consistent carbohydrate Activity: No Restrictions, As Tolerated Activity comment: Balance actiities with rest periods Medications: None Follow Up Care: Discharge Statement: "Patient was advised to return to the ER or call 911 if any headaches, dizziness, shortness of breath, chest pain, abdominal pain, bleeding, fevers, or worsening of medical condition. Patient was counseled about treatment plan, medications, possible side effects, patientverbalized understanding. All questions were answered to the best of my ability. This discharge took greater then 30 minutes in planning, reviewing documenta tion, counseling the patient, and discussing with other team members." Visit Coding OBGYN Date of Service: Oct 03, 2024 Billing Provider: KELI GUZMAN CNM BILLING COORDINATOR Common Visit Codes: [id number] INP/OBS CARE (HIGH) BILLING COORDINATOR Procedure Codes: 49168-38- NON-STRESS TEST KELI GUZMAN CNM Oct 03, 2024 20:36
--- NOTE | 2024-10-03 20:48 | DVH ---
BIOPHYSICAL PROFILE HISTORY: GDMA2/Hypothyroidism Comparison Study: Biophysical profile 09/30/2024 TECHNIQUE: Multiple real-time grayscale sonographic images through the gravid uterus of the fetus wi th duplex Doppler color flow and M-mode spectral analysis FINDINGS: BIOPHYSICAL PROFILE: breathing score: 2 movement score: 2 tone score: 2 Quantitative SABRINA score: 2 (SABRINA: 16 Cm.) Total score: 8 Single live fetus in cephalic presentation. heart rate 129 beats per minute. Posterior placenta without previa or abruption IMPRESSION: Biophysical profile score: 8/8
== END 2024-10-03 21:09 | disposition home or self-care (01) ==
LOC: LDRP 19:10
PROVIDERS: ADMIT Obstetrics & Gynecology; ATTEND Obstetrics & Gynecology
DX: O24.419 Gestational diabetes mellitus in pregnancy, unspecified control (principal); O99.283 Endocrine, nutritional and metabolic diseases complicating pregnancy, third trimester; E03.9 Hypothyroidism, unspecified; Z3A.38 38 weeks gestation of pregnancy; Z79.899 Other long term (current) drug therapy
CPT/HCPCS: 76819; 81002; 82948; 82962; 94760; G0378

== ENCOUNTER 2024-10-06 06:56 | Inpatient (IN) | payer MEDICAID ==
[~2024-10-06] VITALS: Ht 177.8 cm; Wt 120.7 kg
[2024-10-06] MEDS ORDERED: LIDOCAINE 2%HCL (LOCAL ANESTH.) INJ 20ML MDV IJ PRN (07:30)
[2024-10-06] MEDS ORDERED: BUTORPHANOL TARTRATE 2 MG/1 ML VIAL IV PRN ×2 (07:30)
[2024-10-06 08:17] LABS: Urine Bacteria FEW /hpf (None Seen); Urine Blood 1+ /uL (Negative); Urine Clarity Turbid (Clear); Urine Color Light-Yellow (Yellow); Urine Hyaline Cast FEW /lpf (0 - 2); Urine Mucus FEW (None Seen); Urine Protein, UAD Negative (Negative); Urine Squamous Epithelial Cell FEW /hpf (<5); Urine Urobilinogen Normal (Negative); Urine WBC 3 /HPF (0-5)
[2024-10-06 08:20] LABS: Basophils # (auto) 0 10 ^3/uL (0-0.2); Basophils % (auto) 0.4 % (0.0-2.0); Eosinophils # (auto) 0.2 10 ^3/uL (0-0.8); Hematocrit 39.6 % (36.0-46.0); Hemoglobin 13.5 g/dL (12.2-16.2); Lymphocytes % (auto) 23.5 % (10.0-50.0); Mean Corpuscular Hemoglobin 32.8 pg (28.0-32.0); Mean Corpuscular Volume 96.4 fL (80.0-100.0); Monocytes # (auto) 0.7 10 ^3/uL (0-1.3); Monocytes % (auto) 8.4 % (0.0-12.0); Neutrophils # (auto) 5.6 10 ^3/uL (1.6-8.6); Neutrophils % (auto) 65.7 % (37.0-80.0); Platelet Count (auto) 209 10^3/uL (140-450); Red Blood Cells 4.11 10^6/uL (4.0-5.20); Red Cell Distribution Width 14.3 % (11.8-14.3); White Blood Cell 8.5 10^3/uL (4.4-10.8)
--- NOTE | 2024-10-06 08:28 | DVHHP2 ---
Allergies: Coded Allergies: NO KNOWN ALLERGIES (Unverified , 08/22/24) Home Meds Reported Medications Levothyroxine Sodium (Levothyroxine Sodium) 150 Mcg Tab, 150 MCG PO QAM for 30 Days 09/08/24 Metformin Hydrochloride (Metformin Hcl) 500 Mg Tab, 500 MG PO DAILY for 30 Days, MG 09/08/24 Current Medications Current Medications Medications (Trade) Dose Ordered Sig/Clay Route PRN Reason Start Time Stop Time Status Last Admin Lactated Ringer's 1,000 ml @ 125 mls/hr Q8H IV 10/06/24 07:30 UNV Diagnostic Test (Pha) (Accu-Chek Comfort Curve T) 1 strip Q4HR 10/06/24 10:00 UNV Witch Jessy (Tucks) 1 pad PRN PRN TOP PERINEAL AREA DISCOMFORT 10/06/24 07:30 UNV Sodium Lauryl Sulfate (Phisoderm) 240 ml PRN PRN TOP PERINEAL AREA DISCOMFORT 10/06/24 07:30 UNV Benzocaine (Dermoplast) 1 applic PRN PRN TOP PERINEAL AREA DISCOMFORT 10/06/24 07:30 UNV Butorphanol Tartrate (Stadol Injection) 1 mg Q4HPRN PRN IV MODERATE PAIN (4-6 PAIN SCALE) 10/06/24 07:30 UNV Butorphanol Tartrate (Stadol Injection) 2 mg Q4HPRN PRN IV SEVERE PAIN (7-10 PAIN SCALE) 10/06/24 07:30 UNV Misoprostol (Cytotec) 50 mcg Q4HPRN PRN PO CERVICAL RIPENING 10/06/24 07:30 UNV Lidocaine HCl (Xylocaine) 20 ml ONCE PRN IJ PERINEAL AREA DISCOMFORT 10/06/24 07:30 UNV Levothyroxine Sodium (Synthroid Tablet) 150 mcg QAM@0600 PO 10/07/24 06:00 UNV OB Admission Exam Physical Exam Vitals: VSS, see chart HEENT: TMs Normal, Fontanelles Normal, Nasal Mucosa Normal, Eyes non-injected, Oropharynx Normal, PERRLA, Moist Membranes, EOMI Heart: Rhythm Normal Lungs: Clear Abdomen: Gravid Extremities: Normal Reflexes: Normal Pelvic Exam: 0/0/-3 Membranes: Intact Heart Rate: 120's Accelerations: Accelerations Present Decelerations: No Decelerations Skilled Nursing Variability: Average (6-25) Contractions on Admission: None OB Plan Plan Admitting Diagnosis: Induction of labor NARCISO GANDARA STUDENTMDW Oct 06, 2024 08:28
[2024-10-06 08:30] LABS: INR 0.86 (0.9-1.15); Partial Thromboplastin Time 28.4 SEC (24.5-34.5); Prothrombin Time 9.3 sec (9.3-11.8)
[2024-10-06 08:38] LABS: Alanine Aminotransferase 14 U/L (7-40); Albumin 3.9 g/dL (3.2-4.8); Calcium 9.2 mg/dL (8.7-10.4); Carbon Dioxide 21 mmol/L (20-31); Glucose 96 mg/dL (74-106); Potassium 3.6 mmol/L (3.5-5.1); Total Protein 6.4 g/dL (5.7-8.2)
[2024-10-06 08:39] LABS: Bilirubin, Total 0.3 mg/dL (0.2-1.0)
[2024-10-06 08:41] LABS: Amphetamine Screen, Urine Neg (NEGATIVE); Barbiturate Scree,Urine Neg (NEGATIVE); Benzodiazephine Screen, Urine Neg (NEGATIVE); Cannabinoid Screen, Urine Neg (NEGATIVE); Cocaine Screen, Urine Neg (NEGATIVE); Opiate Scree,Urine Neg (NEGATIVE); Phencyclidine Screen, Urine Neg (NEGATIVE)
[2024-10-06 08:44] LABS: Alkaline Phosphatase 145 U/L (46-116); Aspartate Aminotransferase 12 U/L (13-40); Blood Urea Nitrogen 8 mg/dL (9-23); Sodium 136 mmol/L (136-145)
[2024-10-06] MEDS: ACCU-CHEK COMFORT CURVE STRIP VI SCH (09:00)
[2024-10-06 09:15] LABS: Anion Gap 7 (5-15)
[2024-10-06 09:22] LABS: Chloride 108 mmol/L (98-107)
[2024-10-06] MEDS: LEVOTHYROXINE SODIUM 50 MCG TAB PO ONE (09:32)
[2024-10-06] MEDS: WITCH HAZEL-GLYCERIN PAD TOP PRN (09:33)
[2024-10-06] MEDS: PHISODERM TOP SOLN 240ML BTL TOP PRN (09:33)
[2024-10-06] MEDS: miSOPROStol 50 MCG per PRE-CUT 1/2 TAB PO PRN (09:33)
[2024-10-06] MEDS: DERMOPLAST 60ML BOTTLE TOP PRN (09:33)
[2024-10-06] MEDS: LACTATED RINGER'S 1,000 ML IV SCH (09:38)
[2024-10-06] MEDS ORDERED: ACCU-CHEK COMFORT CURVE STRIP VI SCH ×2 (10:00→22:00)
--- NOTE | 2024-10-06 20:54 | DVH ---
BIOPHYSICAL PROFILE HISTORY: GDM, A2 and hypothyroid TECHNIQUE: Multiple transabdominal real-time grayscale sonographic images through the gravid uterus of the fetus with duplex Doppler color flow and M-mode spectral analysis FINDINGS: BIOPHYSICAL PROFILE: breathing score: 2 movement score: 2 tone score: 2 Quantitative SABRINA score: 2 (SABRINA: 10.7 Cm.) Total score: 8/8 The cervix obscured by head Single live fetus in the bowel presentation. heart rate 100 beats per minute. Posterior Grade 3 placenta without previa or abruption Single live fetus at 30 weeks 6 days Biophysical profile score 8/8 corresponding to an LONNY of 10/15/2019 5 Estimated weight non calculated g IMPRESSION: 1. Biophysical profile score: 8/8
--- NOTE | 2024-10-06 23:11 | DVHDS2 ---
Physician Discharge Progress N Final Diagnosis: incorrect dating, IOL attempted, GDMA2, hypothyroidism Secondary Diagnosis: well being established Operations or Procedures: Operations or Procedures S: 28yo IUP@37.6wks based on LMP of 01/15/24, LONNY finalized to 10/21/24. ACOG final LONNY listed as 10/14/24 based on 19wk sono. Pt reports having regular menses and having sex with her partner during the week of ovulation. Denies having first trimester sono at any other clinic. Denies UCs/LOF/VB/WILLIAMSON/vision changes/RUQ pain. Endorses +FM. PNC at [facility] OB office, complicated by GDM, A2 (on metformin) and hypothyroidism (on levothyroxine). O: VSS Category I EFM BPP wnl IOL attempted with 3 doses of cytotec without cervical change SVE initially 0/0/-3 then prior to D/C SVE 0.5/0/-3, intact A: 28yo IUP@37.6wks GDM, A2 hypothyroidism well being established P: Pt wants to go home and give her body more time since there has not been cervical change after [address] Angel agrees with POC, wants pt to come in q2days for NST/BPP. Continue taking metformin and levothyroxine as prescribed FKC/PreE/labor precautions reviewed. Condition on Discharge: Stable Disposition: Home Discharge Instructions: Diet: Consistent carbohydrate Activity: No Restrictions, As Tolerated Medications: PNV Levothyroxine Metformin Follow Up Care: Specialist: f/u in 2 days Discharge Statement: "Patient was advised to return to the ER or call 911 if any headaches, dizziness, shortness of breath, chest pain, abdominal pain, bleeding, fevers, or worsening of medical condition. Patient was counseled about treatment plan, medications, possible side effects, patientverbalized understanding. All questions were answered to the best of my ability. This discharge took greater then 30 minutes in planning, reviewing documentation, counseling the patient, and discussing with other team members." Visit Coding OBGYN Date of Service: Oct 07, 2024 Billing Provider: TEJA GONZALEZ CNM ANDROID PROGRAMMER Common Visit Codes: [id number] INP/OBS CARE (HIGH) ANDROID PROGRAMMER Procedure Codes: 45973-04- NON-STRESS TEST NARCISO GANDARA STUDENTMDW Oct 06, 2024 23:11
[2024-10-07] MEDS ORDERED: LEVOTHYROXINE SODIUM 50 MCG TAB PO SCH (06:00)
== END 2024-10-06 23:18 | disposition home or self-care (01) | DRG 566 ==
LOC: PREOBSVTOIN 06:56 → LDRP 07:16 → UNDOADMIN 07:16 → LDRP 07:20
PROVIDERS: ADMIT Obstetrics & Gynecology; ATTEND Obstetrics & Gynecology
PROC: 3E0DXGC Introduction of Other Therapeutic Substance into Mouth and Pharynx, External Approach (ICD-10-PCS; principal; 2024-10-06)
DX: O99.283 Endocrine, nutritional and metabolic diseases complicating pregnancy, third trimester (principal); O24.414 Gestational diabetes mellitus in pregnancy, insulin controlled; E03.9 Hypothyroidism, unspecified; Z3A.37 37 weeks gestation of pregnancy; Z79.84 Long term (current) use of oral hypoglycemic drugs
CPT/HCPCS: 36415; 76819; 80053; 80307; 81001; 82948; 82962; 85025; 85610; 85730; 86780; 86850; 86900; 86901; 87340; 94760; 96360; 96361; G0378

== ENCOUNTER 2024-10-07 20:42 | Inpatient (IN) | payer MEDICAID ==
[~2024-10-07] VITALS: Ht 177.8 cm; Wt 120.7 kg
[2024-10-07 22:00] LABS: Vaginal Trichomonas Not Present
[2024-10-07 22:01] LABS: Vaginal Bacteria Moderate; Vaginal Clue Cells None Seen; Vaginal Epithelial Cells Moderate
--- NOTE | 2024-10-07 22:10 | DVH ---
ULTRASOUND BIOPHYSICAL PROFILE CLINICAL HISTORY: gdm, a2/hypothyroidism/SABRINA check COMPARISON: US BIOPHYSICAL PROFILE on DOS: 10/06/24 TECHNIQUE: Real-time grayscale, color flow and M-mode imaging of the gravid uterus is performed. FINDINGS: Single living intrauterine gestation. Cephalic presentation. heart rate 137 beats per minute. Posterior placenta. Possible accessory placenta also noted. No definite evidence of previa or abrupt ion at this time. Amniotic fluid index: 10.6cm Biophysical profile: 8 out of 8. (2 breathing, 2 activity, 2 tone, 2 SABRINA) IMPRESSION: Single living intrauterine as above. Biophysical profile scoring 8 out of 8.
[2024-10-07] MEDS ORDERED: LIDOCAINE 2%HCL (LOCAL ANESTH.) INJ 20ML MDV IJ PRN (22:15)
[2024-10-07] MEDS ORDERED: NALBUPHINE HCL 10 MG/1ml INJECTION IV PRN (22:15)
--- NOTE | 2024-10-07 23:08 | DVHHP2 ---
OB CC & HPI Date Date of Admission: Oct 07, 2024 Patient Identification: : 1 Para: 0 EDC: Oct 21, 2024 EGA: 38.0wks Chief Complaints: Reason for admission: induction of labor Indication for induction: other (SROM) History of Present Complaints 28yo IUP@38.0wks presents to OB triage with c/o SROM at 2000, large gush of clear fluid. Has some mild UCs that just started. Reports having intercourse last night. Denies VB/WILLIAMSON/vision changes/RUQ pain. Endorses +FM. PNC: Routine PNC at [facility] OB, adequate visits, PNC complicated by GDM, A2 and hypothyroidism GTT elevated, dating based on LMP not c/w 19wk sono, GBS negative. Past Medical History Cardiac: No pertinent Hx Pulmonary: No pertinent Hx Central Nervous System: No pertinent Hx GI: No pertinent Hx Hemotology/Oncology: No pertinent Hx Hepatobiliary: No pertinent Hx Psychiatric: No pertinent Hx Musculoskeletal: No pertinent Hx Rheumotologic: No pertinent Hx Infectious Disease: No peritnent Hx ENT: No pertinent Hx Renal/: No pertinent Hx Endocrine: No pertinent Hx Dermatology: No pertinent Hx Past Surgical History: Tonsillectomy OB History OB History Care: Good Care Ultrasounds: Normal mid trimester US Obstetrical Complications: Gestational Diabetes (A2) Medical Complications: None Allergies: Coded Allergies: NO KNOWN ALLERGIES (Unverified , 08/22/24) Allergies PNV, see home med list Home Meds Reported Medications Levothyroxine Sodium (Levothyroxine Sodium) 150 Mcg Tab, 150 MCG PO QAM for 30 Days 09/08/24 Metformin Hydrochloride (Metformin Hcl) 500 Mg Tab, 500 MG PO DAILY for 30 Days, MG 09/08/24 Current Medications Current Medications Medications (Trade) Dose Ordered Sig/Clay Route PRN Reason Start Time Stop Time Status Last Admin Lactated Ringer's 1,000 ml @ 125 mls/hr Q8H IV 10/07/24 22:15 Nalbuphine HCl (Nubain) 10 mg Q4HP PRN IV MODERATE PAIN (4-6 PAIN SCALE) 10/07/24 22:15 Witch Jessy (Tucks) 1 pad PRN PRN TOP PERINEAL AREA DISCOMFORT 10/07/24 22:15 Sodium Lauryl Sulfate (Phisoderm) 240 ml PRN PRN TOP PERINEAL AREA DISCOMFORT 10/07/24 22:15 Benzocaine (Dermoplast) 1 applic PRN PRN TOP PERINEAL AREA DISCOMFORT 10/07/24 22:15 Misoprostol (Cytotec) 50 mcg Q4HPRN PRN PO CERVICAL RIPENING 10/07/24 22:15 Lidocaine HCl (Xylocaine) 20 ml ONCE PRN IJ PERINEAL AREA DISCOMFORT 10/07/24 22:15 Ondansetron HCl (Zofran) 4 mg Q6HPRN PRN IV NAUSEA / VOMITING 10/07/24 22:15 Family & Social History Family/Social History Past Family/Social History: denies Blood Type: O+ Rubella: immune RPR/VDRL: Negative GBS Status: Negative HBsAG: Negative Review of Systems Constitutional: No symptom reported Ears, Nose, & Throat: No symptom reported Eyes: No symptom reported Pulmonary/Respiratory: No symptom reported Cardiovascular: No symptom reported Gastrointestinal: No symptom reported Genitourinary: No symptom reported Musculoskeletal: No symptom reported Skin: No symptom reported Psychiatric: No symptom reported Endocrine: No symptom reported Hemotologic/Lymphatic: No symptom reported OB Admission Exam Physical Exam Vitals: VSS, see chart EFW in office this week was 7lbs 11oz [place] [address] Ph: [phone] DIAGNOSTIC IMAGING Diagnostic Imaging Report : [id number] Signed PATIENT: SARA CAMACHO VACCT: [id number] UNIT: [id number] : 1995 LOC: [facility] ROOM / BED: [facility] / A AGE / SEX: 28 / F ADM STATUS: ADM IN SERVICE 28 ORDERING PHYSICIAN: TEJA GONZALEZ CNM PROCEDURE(s): BPP - BIOPHYSICAL PROFILE REASON: gdm, a2/hypothyroidism/SABRINA check ORDER NUMBER(s): [id number], ACCESSION NUMBER(s): [id number] ULTRASOUND BIOPHYSICAL PROFILE CLINICAL HISTORY: gdm, a2/hypothyroidism/SABRINA check COMPARISON: US BIOPHYSICAL PROFILE on DOS: 10/06/24 TECHNIQUE: Real-time grayscale, color flow and M-mode imaging of the gravid uterus is performed. FINDINGS: Single living intrauterine gestation. Cephalic presentation. heart rate 137 beats per minute. Posterior placenta. Possible accessory placenta also noted. No definite evidence of previa or abruption at this time. Amniotic fluid index: 10.6cm Biophysical profile: 8 out of 8. (2 breathing, 2 activity, 2 tone, 2 SABRINA) IMPRESSION: Single living intrauterine as above. Biophysical profile scoring 8 out of 8. ATED BY: GIOVANY WARD MD DICTATED DATE/TIME: 10/07/242206 SIGNED BY: GIOVANY WARD MD SIGNED DATE/TIME: 10/07/242206 CC: HEENT: TMs Normal, Fontanelles Normal, Nasal Mucosa Normal, Eyes non-injected, Oropharynx Normal, PERRLA, Moist Membranes, EOMI Heart: Rhythm Normal Lungs: Clear Abdomen: Gravid Extremities: Normal Reflexes: Normal Cervical Dilatation: 2cm Effacement: Other (60%) Station: -2 Membranes: Ruptured Amniotic Fluid: Clear Heart Rate: 120's Accelerations: Accelerations Present Decelerations: No Decelerations Short Term Variability: Present Circle Beveler Variability: Average (6-25) Contractions on Admission: 6-10 Minutes Apart Date/Time Contractions Began: 2129 Frequency of Contractions: q10min Duration: 60 Intensity: Mild OB Plan Plan Admitting Diagnosis: 28yo IUP@38.0wks Induction of Labor for SROM GDM, A2 Hypothyroidism Category I EFM GBS negative Plan: Induction Induction Methd: Misoprostol protocol Other Plan: Admit to L&D Informed consent obtained Discussed risks, benefits, alternatives of IOL for SROM with pt. Pt consents to IOL with cytotec. Blood glucose q4hrs then q2hrs in active labor monitoring per order Routine labs ordered Pain mgmt PRN Frequent position changes in and out of bed encouraged Limit SVE unless necessary Intrauterine resuscitation PRN Anticipate RONY is co-managing care with Dr. Angel. Visit Coding OBGYN Date of Service: Oct 07, 2024 Billing Provider: TEJA GONZALEZ CNM MANAGER OF SCHOOL Common Visit Codes: [id number] INP/OBS CARE (HIGH) LEÓN SMART MDWF Oct 07, 2024 23:08
[2024-10-07 23:10] LABS: Basophils # (auto) 0.1 10 ^3/uL (0-0.2); Basophils % (auto) 0.7 % (0.0-2.0); Eosinophils # (auto) 0.2 10 ^3/uL (0-0.8); Eosinophils % (auto) 1.6 % (0.0-7.0); Hematocrit 41.5 % (36.0-46.0); Hemoglobin 13.7 g/dL (12.2-16.2); Lymphocytes # (auto) 2.3 10 ^3/uL (0.4-5.4); Lymphocytes % (auto) 22.3 % (10.0-50.0); Mean Corpuscular Hemoglobin 32.4 pg (28.0-32.0); Mean Corpuscular Hgb Conc. 33.1 g/dL (32.0-36.0); Mean Corpuscular Volume 98.1 fL (80.0-100.0); Monocytes # (auto) 0.9 10 ^3/uL (0-1.3); Monocytes % (auto) 8.4 % (0.0-12.0); Neutrophils # (auto) 6.8 10 ^3/uL (1.6-8.6); Nucleated Red Blood Cells % 0.1 %; Platelet Count (auto) 225 10^3/uL (140-450); Red Blood Cells 4.23 10^6/uL (4.0-5.20); Red Cell Distribution Width 14.5 % (11.8-14.3); White Blood Cell 10.2 10^3/uL (4.4-10.8)
[2024-10-07] MEDS: WITCH HAZEL-GLYCERIN PAD TOP PRN (23:11)
[2024-10-07] MEDS: DERMOPLAST 60ML BOTTLE TOP PRN (23:11)
[2024-10-07] MEDS: PHISODERM TOP SOLN 240ML BTL TOP PRN (23:11)
[2024-10-07] MEDS: LACTATED RINGER'S 1,000 ML IV SCH (23:12)
[2024-10-07] MEDS: miSOPROStol 50 MCG per PRE-CUT 1/2 TAB PO PRN (23:12)
[2024-10-07 23:13] LABS: Urine Bacteria None Seen /hpf (None Seen)
[2024-10-07 23:26] LABS: INR 0.89 (0.9-1.15); Partial Thromboplastin Time 27.6 SEC (24.5-34.5); Prothrombin Time 9.5 sec (9.3-11.8)
[2024-10-07 23:28] LABS: Albumin 3.9 g/dL (3.2-4.8); Anion Gap 8 (5-15); BUN/Creatinine Ratio 11.7 (10.0-20.0); Bilirubin, Total 0.4 mg/dL (0.2-1.0); Calcium 9.5 mg/dL (8.7-10.4); Glucose 101 mg/dL (74-106); Potassium 3.8 mmol/L (3.5-5.1); Sodium 137 mmol/L (136-145); Total Protein 6.4 g/dL (5.7-8.2)
[2024-10-07 23:30] LABS: Alanine Aminotransferase < 9 U/L (7-40); Alkaline Phosphatase 143 U/L (46-116); Aspartate Aminotransferase 12 U/L (13-40); Blood Urea Nitrogen 7 mg/dL (9-23); Carbon Dioxide 20 mmol/L (20-31); Chloride 109 mmol/L (98-107)
[2024-10-07 23:34] LABS: Amphetamine Screen, Urine Neg (NEGATIVE); Barbiturate Scree,Urine Neg (NEGATIVE); Benzodiazephine Screen, Urine Neg (NEGATIVE); Cocaine Screen, Urine Neg (NEGATIVE)
[2024-10-07 23:35] LABS: Cannabinoid Screen, Urine Neg (NEGATIVE); Opiate Scree,Urine Neg (NEGATIVE); Phencyclidine Screen, Urine Neg (NEGATIVE); Urine Blood 1+ /uL (Negative); Urine Clarity Clear (Clear); Urine Color Light-Yellow (Yellow); Urine Mucus FEW (None Seen); Urine Protein, UAD TRACE (Negative); Urine Specific Gravity 1.021 (1.001-1.035); Urine Squamous Epithelial Cell None Seen /hpf (<5); Urine Urobilinogen Normal (Negative); Urine WBC 1 /HPF (0-5)
[2024-10-08] MEDS: ONDANSETRON HCL 4 MG/2 ML VIAL IV PRN (01:35)
--- NOTE | 2024-10-08 01:36 | DVH ---
LIMITED SURVEY CLINICAL HISTORY: gdm, a2 need EFW COMPARISON: Ultrasound biophysical profile obtained earlier the same day. TECHNIQUE: Real-time grayscale and M-mode imaging of the gravid uterus is performed. FINDINGS: Single living intrauterine gestation. Cephalic presentation. heart rate 131 beats per minute. Average ultrasound age 38 weeks 3 days. Estimated due date 10/19/2024. measurements (cm): BPD 9.4, HC 33.8, AC 34.7, FL 7.4. Estimated weight: 3489g Placenta is posterior. No definite evidence of abruption or previa at this time. Amniotic fluid index 10.6 cm. IMPRESSION: Single living intrauterine as above. HS:Y
[2024-10-08] MEDS ORDERED: ePHEDrine SULFATE 50 MG/ML AMP IV ONE (03:00)
[2024-10-08] MEDS ORDERED: NALOXONE HCL 0.4 MG/ML VIAL IV ONE (03:00)
[2024-10-08] MEDS: ROPIVACAINE HCL 200 ML ONE (04:35)
--- NOTE | 2024-10-08 04:41 | DVHPN2 ---
CNM Labor Progress Note Date and Time Seen Date Seen: Oct 08, 2024 Time Seen: 04:30 Subjective Patient reports: Feels better Subjective Comment PT states she feels better after epidural Objective Vital Signs VSS, see chart Monitoring Method Monitoring Method: External Heart Rate Heart Rate Baseline: 135 Heart Rate Variability: Moderate Presence of FHR Accelerations: Yes Presence of FHR Decelerations: Yes Heart Rate Type of Decel: Early Deceleraions Changes in Trends of Patterns: No Are all 5 Components of the FH: Yes Contractions Contractions Frequency: Other (2-5) Duration of Contraction: 60 Contractions Intensity: Moderate Contractions Resting Tone: Relaxed Membranes Membranes: Ruptured Amniotic Fluid Color: Clear Vaginal Exam Vag Exam Deferred: Yes (last VE by RN /-1 @ 0303) Vaginal Exam Show: None Medications Medications - Pitocin: No Medication - Epidural: Yes Medication - Other s/p 1 dose of PO misoprostol Lab Results Lab Results Current Medications Medications (Trade) Dose Ordered Sig/Clay Start Time Stop Time Status Last Admin Dose Admin Lactated Ringer's 1,000 ml @ 125 mls/hr Q8H 10/07/24 22:15 10/08/24 04:33 125 MLS/HR Nalbuphine HCl (Nubain) 10 mg Q4HP PRN 10/07/24 22:15 Witch Jessy (Tucks) 1 pad PRN PRN 10/07/24 22:15 10/07/24 23:11 1 PAD Sodium Lauryl Sulfate (Phisoderm) 240 ml PRN PRN 10/07/24 22:15 10/07/24 23:11 240 ML Benzocaine (Dermoplast) 1 applic PRN PRN 10/07/24 22:15 10/07/24 23:11 1 APPLIC Misoprostol (Cytotec) 50 mcg Q4HPRN PRN 10/07/24 22:15 10/07/24 23:44 50 MCG Lidocaine HCl (Xylocaine) 20 ml ONCE PRN 10/07/24 22:15 Ondansetron HCl (Zofran) 4 mg Q6HPRN PRN 10/07/24 22:15 10/08/24 01:35 4 MG Oxytocin 500 ml @ 999 mls/hr Q31M ONCE 10/08/24 22:15 10/08/24 22:45 Oxytocin 500 ml @ 125 mls/hr Q4H ONCE 10/08/24 22:45 10/09/24 02:44 Levothyroxine Sodium (Synthroid Tablet) 150 mcg QAM@0600 10/08/24 06:00 Naloxone HCl (Narcan) 0.2 mg PRN ONCE 10/08/24 03:00 10/08/24 03:01 DC Ephedrine Sulfate (ePHEDrine SULFATE) 10 mg PRN ONCE 10/08/24 03:00 10/08/24 03:01 DC Oxytocin 1,000 ml @ 6 ml/hr Q24H 10/08/24 04:30 Laboratory Tests Test 10/08/24 03:04 10/07/24 22:58 10/07/24 22:52 10/07/24 22:35 Range/Units POC Glucose 100 70-106 mg/dl White Blood Count 10.2 4.4-10.8 10^3/uL Red Blood Count 4.23 4.0-5.20 10^6/uL Hemoglobin 13.7 12.2-16.2 g/dL Hematocrit 41.5 36.0-46.0 % Mean Corpuscular Volume 98.1 80.0-100.0 fL Mean Corpuscular Hemoglobin 32.4 H 28.0-32.0 pg Mean Corpuscular Hemoglobin Concent 33.1 32.0-36.0 g/dL Red Cell Distribution Width 14.5 H 11.8-14.3 % Platelet Count 225 140-450 10^3/uL Mean Platelet Volume 8.7 6.9-10.8 fL Neutrophils (%) (Auto) 67.0 37.0-80.0 % Lymphocytes (%) (Auto) 22.3 10.0-50.0 % Monocytes (%) (Auto) 8.4 0.0-12.0 % Eosinophils (%) (Auto) 1.6 0.0-7.0 % Basophils (%) (Auto) 0.7 0.0-2.0 % Neutrophils # (Auto) 6.8 1.6-8.6 10 ^3/uL Lymphocytes # (Auto) 2.3 0.4-5.4 10 ^3/uL Monocytes # (Auto) 0.9 0-1.3 10 ^3/uL Eosinophils # (Auto) 0.2 0-0.8 10 ^3/uL Basophils # (Auto) 0.1 0-0.2 10 ^3/uL Nucleated Red Blood Cells 0.1 % Sodium Level 137 136-145 mmol/L Potassium Level 3.8 3.5-5.1 mmol/L Chloride Level 109 H 98-107 mmol/L Carbon Dioxide Level 20 20-31 mmol/L Anion Gap 8 5-15 Blood Urea Nitrogen 7 L 9-23 mg/dL Creatinine 0.60 0.550-1.02 mg/dL Glomerular Filtration Rate Calc 125 >90 mL/min BUN/Creatinine Ratio 11.7 10.0-20.0 Serum Glucose 101 74-106 mg/dL Calcium Level 9.5 8.7-10.4 mg/dL Total Bilirubin 0.4 0.2-1.0 mg/dL Aspartate Amino Transferase (AST) 12 L 13-40 U/L Alanine Aminotransferase (ALT) < 9 7-40 U/L Alkaline Phosphatase 143 H 46-116 U/L Total Protein 6.4 5.7-8.2 g/dL Albumin 3.9 3.2-4.8 g/dL Hepatitis C Antibody Negative Negative Prothrombin Time 9.5 9.3-11.8 sec Prothrombin Time INR 0.89 L 0.9-1.15 Activated Partial Thromboplast Time 27.6 24.5-34.5 SEC Urine Color Light-yellow Yellow Urine Clarity Clear Clear Urine pH 6.0 5.0-9.0 Urine Specific [place] 1.021 1.001-1.035 Urine Protein Trace H Negative Urine Ketones Negative Negative Urine Blood 1+ H Negative /uL Urine Nitrite Negative Negative Urine Bilirubin Negative Negative Urine Urobilinogen Normal Negative mg/dL Urine Leukocyte Esterase Negative Negative /uL Urine RBC 6 0 - 4 /hpf Urine Microscopic WBC 1 0-5 /HPF Urine Squamous Epithelial Cells None seen <5 /hpf Urine Bacteria None seen None Seen /hpf Urine Mucus Few None Seen Urine Glucose Normal Normal mg/dL Urine Opiates Screen Neg NEGATIVE Urine Fentanyl Screen Neg NEGATIVE Urine Barbiturates Screen Neg NEGATIVE Urine Phencyclidine Screen Neg NEGATIVE Urine Amphetamines Screen Neg NEGATIVE Urine Benzodiazepines Screen Neg NEGATIVE Urine Cocaine Screen Neg NEGATIVE Urine Cannabinoids Screen Neg NEGATIVE Test 10/07/24 21:38 Range/Units Placental [id number] Positive Vaginal WBC (Wet Prep) Few Vaginal RBC (Wet Prep) Few Vaginal Epithelial Cells (Wet Prep) Moderate Vaginal Bacteria (Wet Prep) Moderate Vaginal Trichomonas (Wet Prep) Not present Vaginal Yeast (Wet Prep) None seen Vaginal Clue Cells (Wet Prep) None seen Assessment Assessment 28yo IUP@38.1wks Induction of Labor for SROM GDM, A2 Hypothyroidism Category I EFM GBS negative Plan Plan Continue induction with Oxytocin per protocol Pain MGMT with epidural Frequent position changes in bed encouraged Limit SVE unless necessary Intrauterine resuscitation PRN Anticipate CNM will consult with Dr. Angel PRN Plan discussed with: Patient, Spouse Visit Coding OBGYN Date of Service: Oct 08, 2024 Billing Provider: TEJA GONZALEZ CNM ASP WEB DEVELOPER Common Visit Codes: [id number] INP/OBS CARE(HIGH) LEÓN SMART STDT MDWF Oct 08, 2024 04:41
[2024-10-08] MEDS: LACT. RINGERS/OXYTOCIN 20UNITS 1,000 ML IV SCH (05:53)
[2024-10-08] MEDS: LEVOTHYROXINE SODIUM 50 MCG TAB PO SCH (05:54)
--- NOTE | 2024-10-08 07:15 | DVHPN2 ---
Chief Complaints Patient reports: No new complaints, Feels better Nursing reports: No new complaints Objective Medications Current Medications Medications (Trade) Dose Ordered Sig/Clay Route PRN Reason Start Time Stop Time Status Last Admin Benzocaine (Dermoplast) 1 applic PRN PRN TOP PERINEAL AREA DISCOMFORT 10/07/24 22:15 10/07/24 23:11 Lactated Ringer's 1,000 ml @ 125 mls/hr Q8H IV 10/07/24 22:15 10/08/24 04:33 Levothyroxine Sodium (Synthroid Tablet) 150 mcg QAM@0600 PO 10/08/24 06:00 10/08/24 05:54 Lidocaine HCl (Xylocaine) 20 ml ONCE PRN IJ PERINEAL AREA DISCOMFORT 10/07/24 22:15 Misoprostol (Cytotec) 50 mcg Q4HPRN PRN PO CERVICAL RIPENING 10/07/24 22:15 10/07/24 23:44 Nalbuphine HCl (Nubain) 10 mg Q4HP PRN IV MODERATE PAIN (4-6 PAIN SCALE) 10/07/24 22:15 Ondansetron HCl (Zofran) 4 mg Q6HPRN PRN IV NAUSEA / VOMITING 10/07/24 22:15 10/08/24 01:35 Oxytocin 1,000 ml @ 6 ml/hr Q24H IV 10/08/24 04:30 10/08/24 05:53 Sodium Lauryl Sulfate (Phisoderm) 240 ml PRN PRN TOP PERINEAL AREA DISCOMFORT 10/07/24 22:15 10/07/24 23:11 Witch Jessy (Tucks) 1 pad PRN PRN TOP PERINEAL AREA DISCOMFORT 10/07/24 22:15 10/07/24 23:11 Others VE-10CM/+2 /100 Studies Laboratory Tests 10/07/24 22:58 Test 10/07/24 22:58 Range/Units Serum Glucose 101 74-106 mg/dL Ass/Plan Assessment ACTIVE LABOR Plan AZY CNM WILL TAKE OVER AND DELIVER PT WILL START PUSHING Visit Coding OBGYN Date of Service: Oct 08, 2024 Billing Provider: MARIO ANTOINE DO METER SETTER Common Visit Codes: [id number] INP/OBS CARE(HIGH) METER SETTER Procedure Codes: [id number]- NON-STRESS TEST MARIO ANTOINE DO Oct 08, 2024 07:15
[2024-10-08] MEDS: LACT. RINGERS/OXYTOCIN 20UNITS 500 ML IV ONE ×2 (08:52→08:53)
--- NOTE | 2024-10-08 09:08 | LDN2 ---
Labor and Delivery Note Date 10/08/24 Age 28 1 Para 1 AB n/a EDC 10/21/2024 EGA 38.1 weeks Diagnosis IOL for SROM then Vaginal Delivery: VTX Vacuum Assisted: No Placenta: Spontaneous Sex: Male Weight pending Apgars 8/9 Nuchal Cord Transected: No Amniotic Fluid: Clear Anesthesia epidural Episiotomy: No Extension: No Repaired with 1st degree perineal laceration repaired with 3-0 Vicryl suture Bilateral labial lacerations repaired with 3-0 Vicryl suture EBL QBL: 1050 mL Labs Laboratory Tests 10/06/24 07:47: Hepatitis B Surface Antigen Negative 05/29/24 06:20: HIV (1&2) Antibody Negative, Rubella Antibody Positive Blood Bank 10/07/24 22:58: Blood Type O POSITIVE Complications PPH: bleeding from lacerations, CNM at bedside for delivery. IV TXA x1 given by RN. Bleeding controlled with repair. Conditions Stable Wallpaper Hanger Dr. Deleon Comments/Significant Med [place] At 0754 this 28yo now delivered a viable Male by w/ APGARS 8/9. FRANCIA with loose Nuchal x2 with cord reduced after . placed skin to skin on pts chest. Cord clamped and cut after pulsation ceased. Cord blood sent. Intact 3-vessel cord, placenta delivered spontaneously, Rosenda. Accessory placenta noted, intact. Pitocin IV bolus started. IV TXA 1g given by RN. Placenta sent to pathology. Patient had epidural anesthesia. RT at bedside to assess . Cervix/vagina inspected (intact), first degree perineal and bilateral labial lacerations present which was repaired with 3-0 vicryl suture. Fundus at U, firm, midline, and light lochia. QBL 1050ml. VSS. Count correct x2. Patient to care and baby to nursery for further evaluation, both stable. Visit Coding OBGYN Date of Service: Oct 08, 2024 Billing Provider: TEJA GONZALEZ CNM DIRECTOR RETIREMENT Common Visit Codes: [id number] INP/OBS CARE(HIGH) DIRECTOR RETIREMENT Procedure Codes: [id number] DEL INCLUDING LEÓN SMART MDWF Oct 08, 2024 09:08
[2024-10-08] MEDS ORDERED: PREN-96 PO (09:10)
[2024-10-08] MEDS ORDERED: LEVO150T10 PO (09:10)
[2024-10-08] MEDS ORDERED: DOCU-265 PO (09:10)
[2024-10-08] MEDS ORDERED: IBU600T PO (09:10)
[2024-10-08] MEDS ORDERED: ACETAMINOPHEN 325 MG TAB PO PRN (09:15)
[2024-10-08] MEDS ORDERED: IBUPROFEN 600 MG TAB PO PRN (09:15)
[2024-10-08] MEDS ORDERED: PRENATAL VITAMIN TAB PO SCH (10:00)
[2024-10-08] MEDS ORDERED: DOCUSATE SOD 100 MG CAP PO PRN (10:00)
[2024-10-08 10:10] LABS: Basophils # (auto) 0.1 10 ^3/uL (0-0.2); Basophils % (auto) 0.4 % (0.0-2.0); Eosinophils # (auto) 0.1 10 ^3/uL (0-0.8); Eosinophils % (auto) 0.6 % (0.0-7.0); Hematocrit 37.1 % (36.0-46.0); Hemoglobin 12.7 g/dL (12.2-16.2); Lymphocytes # (auto) 1.7 10 ^3/uL (0.4-5.4); Lymphocytes % (auto) 11.8 % (10.0-50.0); Mean Corpuscular Hgb Conc. 34.1 g/dL (32.0-36.0); Mean Corpuscular Volume 96.5 fL (80.0-100.0); Monocytes % (auto) 6.9 % (0.0-12.0); Neutrophils # (auto) 11.8 10 ^3/uL (1.6-8.6); Neutrophils % (auto) 80.3 % (37.0-80.0); Platelet Count (auto) 191 10^3/uL (140-450); Red Blood Cells 3.84 10^6/uL (4.0-5.20); Red Cell Distribution Width 14.5 % (11.8-14.3); White Blood Cell 14.7 10^3/uL (4.4-10.8)
[2024-10-08 11:00] VITALS: BP 123/76; PULSE 63; RESP 17; TEMP 97.7
[2024-10-08 15:00] VITALS: BP 109/62; PULSE 68; RESP 16; TEMP 98.3
[2024-10-08 18:50] VITALS: BP 112/71; PULSE 76; RESP 15; TEMP 98
[2024-10-08 23:30] VITALS: BP 111/63; PULSE 82; RESP 15; TEMP 97.6
[2024-10-09 03:30] VITALS: BP 108/68; PULSE 83; RESP 15; TEMP 98
[2024-10-09 07:00] VITALS: BP 122/77; PULSE 94; RESP 18; TEMP 97.2
--- NOTE | 2024-10-09 07:56 | DVHPN2 ---
Chief Complaints Patient reports: No new complaints, Feels better Nursing reports: No new complaints Objective Vitals Vital Signs Date Time Temp Pulse Resp B/P (MAP) Pulse Ox O2 Delivery O2 Flow Rate FiO2 10/09/24 07:00 Room Air 0.0 10/09/24 03:30 98.0 83 15 108/68 (81) 98.0 Medications Current Medications Medications (Trade) Dose Ordered Sig/Clay Route PRN Reason Start Time Stop Time Status Last Admin Acetaminophen (Tylenol Tablet) 650 mg Q6HPRN PRN PO MILD PAIN (1-3 PAIN SCALE) 10/08/24 09:15 Docusate Sodium (Colace Capsule) 200 mg DAILYPRN PRN PO FOR CONSTIPATION 10/08/24 10:00 Ibuprofen (Motrin Tablet) 600 mg Q6HP PRN PO MODERATE PAIN (4-6 PAIN SCALE) 10/08/24 09:15 Prenat Multivit/ [place] Fitter/Iron/Folic Ac (Prenavite Tablet) 1 DAILY PO 10/08/24 10:00 General: Normal Lungs: Normal Cardiovascular: Normal Abdominal: Soft Extremities: Normal Studies Laboratory Tests 10/08/24 09:20 10/07/24 22:58 Test 10/07/24 22:58 Range/Units Serum Glucose 101 74-106 mg/dL Ass/Plan Assessment s/p Plan dc home fu in 2wks Visit Coding OBGYN Date of Service: Oct 09, 2024 Billing Provider: MARIO ANTOINE DO TUBE INSPECTOR Common Visit Codes: [id number] INP/OBS CARE(HIGH) MARIO ANTOINE DO Oct 09, 2024 07:56
--- NOTE | 2024-10-09 07:59 | DVHDS2 ---
Obstetrics Discharge Summary Obstetrics Discharge Summary Date of Admission: Oct 07, 2024 Date of Discharge: Oct 09, 2024 Reason For Admission: Onset of Labor, PROM Procedures: NST Intrapartum Procedures: Spontaneous vaginal deliv Operative Complicat: None, Laceration (Perineal) Discharge Diagnosis: Term -Delivered Discharge Information: Activity (Other), Diet (Routine), Medications (None), Instructions (Routine), Discharge to (Home), Discarge date (-) Visit Coding OBGYN Date of Service: Oct 09, 2024 Billing Provider: MARIO ANTOINE DO PERSONAL FINANCE INSTRUCTOR Common Visit Codes: 59499-KPB/OBS DISCH DAY >30MIN MARIO ANTOINE DO Oct 09, 2024 07:59
== END 2024-10-09 10:45 | disposition home or self-care (01) | DRG 560 ==
LOC: LDRP 20:42 → OBSVTOIN 22:13 → LDRP 22:31
PROVIDERS: ADMIT Obstetrics & Gynecology; ATTEND Obstetrics & Gynecology
PROC: 10E0XZZ Delivery of Products of Conception, External Approach (ICD-10-PCS; principal; 2024-10-08)
PROC: 0HQ9XZZ Repair Perineum Skin, External Approach (ICD-10-PCS; 2024-10-08)
PROC: 0UQMXZZ Repair Vulva, External Approach (ICD-10-PCS; 2024-10-08)
PROC: 3E0R3BZ Introduction of Anesthetic Agent into Spinal Canal, Percutaneous Approach (ICD-10-PCS; 2024-10-08)
PROC: 00HU33Z Insertion of Infusion Device into Spinal Canal, Percutaneous Approach (ICD-10-PCS; 2024-10-08)
DX: O24.425 Gestational diabetes mellitus in childbirth, controlled by oral hypoglycemic drugs (principal); Z37.0 Single live birth; O72.1 Other immediate postpartum hemorrhage; O99.284 Endocrine, nutritional and metabolic diseases complicating childbirth; E03.9 Hypothyroidism, unspecified; Z3A.38 38 weeks gestation of pregnancy; O70.0 First degree perineal laceration during delivery
CPT/HCPCS: 36415; 59409; 76805; 76819; 80053; 80307; 81001; 82948; 82962; 84112; 85025; 85610; 85730; 86803; 86850; 86900; 86901; 87210; 94760; 94762; 96360; 96361; 96365; 96366; G0378; J2405; J2590

== ENCOUNTER → 2024-11-23 | Outpatient (CLI) | payer MEDICAID ==
[~2024-11-23] MED LIST changes: +DOCU-265 PO; +IBU600T PO; -METF-370 PO; +PREN-96 PO
[2024-11-23 09:02] LABS: Basophils # (auto) 0 10 ^3/uL (0-0.2); Basophils % (auto) 0.4 % (0.0-2.0); Eosinophils # (auto) 0.3 10 ^3/uL (0-0.8); Eosinophils % (auto) 3.6 % (0.0-7.0); Hematocrit 42.5 % (36.0-46.0); Hemoglobin 14.5 g/dL (12.2-16.2); Lymphocytes # (auto) 3.1 10 ^3/uL (0.4-5.4); Lymphocytes % (auto) 43.5 % (10.0-50.0); Mean Corpuscular Hemoglobin 31.7 pg (28.0-32.0); Mean Corpuscular Hgb Conc. 34.1 g/dL (32.0-36.0); Mean Corpuscular Volume 93.2 fL (80.0-100.0); Monocytes # (auto) 0.5 10 ^3/uL (0-1.3); Monocytes % (auto) 6.4 % (0.0-12.0); Neutrophils # (auto) 3.3 10 ^3/uL (1.6-8.6); Neutrophils % (auto) 46.1 % (37.0-80.0); Nucleated Red Blood Cells % 0.1 %; Platelet Count (auto) 271 10^3/uL (140-450); Red Blood Cells 4.55 10^6/uL (4.0-5.20); Red Cell Distribution Width 13.6 % (11.8-14.3); White Blood Cell 7.2 10^3/uL (4.4-10.8)
[2024-11-23 10:12] LABS: % Iron Saturation 23.5 % (15-50)
[2024-11-23 10:28] LABS: Free T4 (Free Thyroxine) 1.21 ng/dL (0.89-1.76); T3 Total 0.78 ng/mL (0.60-1.81)
[2024-11-23 10:29] LABS: Ferritin 60.8 ng/mL (10-291)
[2024-11-24 07:07] LABS: T3 Uptake 27 % (24-39); Thyroid Peroxidase (TPO) Ab 111 IU/mL (0-34); Thyroxine (T4) 7.1 ug/dL (4.5-12.0)
[2024-11-24 11:07] LABS: Thyroglobulin Antibody <1.0 IU/mL (0.0-0.9)
== END | disposition home or self-care (01) ==
LOC: LAB 08:28
PROVIDERS: ATTEND Nurse Practitioner Women's Health
DX: O24.434 Gestational diabetes mellitus in the puerperium, insulin controlled (principal); O90.5 Postpartum thyroiditis; O90.89 Other complications of the puerperium, not elsewhere classified; Z39.1 Encounter for care and examination of lactating mother
CPT/HCPCS: 36415; 82306; 82728; 82951; 83540; 83550; 84436; 84439; 84443; 84479; 84480; 85025; 86376; 86800

== ENCOUNTER 2025-06-16 12:13 | Outpatient (CLI) | payer MEDICAID ==
[2025-06-16 13:07] LABS: Free T3 2.89 pg/mL (2.3-4.2); Free T4 (Free Thyroxine) 1.09 ng/dL (0.89-1.76)
== END 2025-06-16 17:00 | disposition home or self-care (01) ==
LOC: LAB 12:13
PROVIDERS: ATTEND Internal Medicine Endocrinology, Diabetes & Metabolism
DX: E03.9 Hypothyroidism, unspecified (principal)
CPT/HCPCS: 36415; 84439; 84443; 84481